=== PATIENT | female | born 1970 | race Hispanic/Latino ===

== ENCOUNTER 2016-06-24 03:51 | Emergency (ER) | payer OTHER ==
[~2016-06-24] VITALS: Ht 167.6 cm; Wt 65.8 kg
[~2016-06-24 03:51] MED LIST: BACTRIM DS 8001 TAB PO; BENTYL20 MG PO; KEFLEX500 MG PO; LO LOESTRIN FE1 TAB PO; MOTRIN800 MG PO; PRILOSEC40 MG PO; XANAX0.5 MG PO; ZOFRAN ODT4 MG PO
--- NOTE | 2016-06-24 04:08 | ED GI/GU/ABDOMINAL COMPLAINT ---
History of Present Illness General Chief Complaint: Syncope and Near-Syncope Stated Complaint: SYNCOPE AND DIARRHEA Source: patient, family, old records Exam Limitations: no limitations Vital Signs & Intake/Output Vital Signs & Intake/Output Vital Signs Date Time Temp Pulse Resp B/P Pulse O2 O2 Flow FiO2 Ox Delivery Rate 06/24 0405 Room Air 06/24 0402 96.9 70 18 101/59 97 Room Air Allergies Coded Allergies: NO KNOWN ALLERGIES (04/09/15) Reconcile Medications Alprazolam (Xanax) 0.5 MG TAB 1 TAB PO BID PRN ANXIETY Dicyclomine Hydrochloride (Bentyl) 20 MG TAB 1 TAB PO TID PRN ABDOMINAL SPASMS NORETHINDRONE-E.ESTRADIOL-IRON (Lo Loestrin Fe 1-10 Tablet) 1 TAB TAB 1 TAB PO DAILY CONTROL (Reported) Omeprazole (Prilosec) 40 MG ECC 1 TAB PO DAILY ACID REFLUX Ondansetron (Zofran Odt) 4 MG ODT 1 TAB PO Q6P PRN NAUSEA Triage Note: PT TO TRIAGE S/P WAKING UP OUT OF SLEEP FEELING NAUSEOUS, WENT INTO THE BATHROOM AND HAD AN EPISODE OF DIARRHEA AND A ?SYNCOPAL EPISODE. PT PALE IN COLOR, ALERT AND ORIENTED UPON ARRIVAL TO ER. Triage Nurses Notes Reviewed? yes ? N Is pt currently ? No HPI: Patient woke up with Abdominal pain associated with her bowels. Patient is also very nauseous. Patient went to the bathroom and in the beginning having diarrhea. Patient then became very lightheaded and anxious, pass out. Patient called her . came in just in time to witness or have syncopal episode lasting approximately 20 seconds. Patient did not fall off the toilet. Patient continues to feel nauseous but denies any further abdominal cramps or pain. Past History Travel History Traveled to [place] past 21 day No Medical History Any Pertinent Medical History? 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 No Review of Systems Review of Systems Constitutional: Reports: see HPI, chills. EENTM: Reports: no symptoms. Respiratory: Reports: no symptoms. Cardiovascular: Reports: no symptoms. GI: Reports: see HPI, abdominal pain, diarrhea, nausea. Genitourinary: Reports: no symptoms. Musculoskeletal: Reports: no symptoms. Skin: Reports: no symptoms. Neurological/Psychological: Reports: no symptoms. Hematologic/Endocrine: Reports: no symptoms. Immunologic/Allergic: Reports: no symptoms. All Other Systems: Reviewed and Negative Physical Exam Physical Exam General Appearance: well developed/nourished, alert, awake, anxious, moderate distress Head: atraumatic, normal appearance Eyes: Bilateral: PERRL, EOMI. Ears, Nose, Throat, Mouth: hearing grossly normal, DRY MUCUS MEMBRANES Neck: normal inspection, supple, full range of motion Respiratory: normal breath sounds, chest non-tender, no respiratory distress, lungs clear Cardiovascular: regular rate/rhythm, normal peripheral pulses Gastrointestinal: normal bowel sounds, soft, non-tender, no organomegaly Back: normal inspection, normal range of motion, NO CVA TENDERNESS Extremities: normal range of motion Neurologic/Psych: no motor/sensory deficits, awake, alert, oriented x 3, normal gait, normal mood/affect Skin: intact, normal color, warm/dry Core Measures ACS in differential dx? No Severe Sepsis Present: No Septic Shock Present: No Progress Differential Diagnosis: biliary colic, colon cancer, diverticulitis, ischemic bowel, inflamm bowel dis, pancreatitis Plan of Care: Orders Procedure Date/time Status Telemetry/Impregnating Tank Operator 06/24 406 Active TROPONIN LEVEL 06/24 406 Complete HUMAN BETA HCG SCREEN 06/24 406 Complete COMPREHENSIVE METABOLIC PANEL 06/24 406 Complete CBC WITHOUT DIFFERENTIAL 06/24 406 Complete EKG 06/24 406 Active Laboratory Tests 06/24/16 0416: Anion Gap 6, Estimated GFR > 60, BUN/Creatinine Ratio 23.3, Glucose 103 H, Calcium 9.1, Total Bilirubin 0.6, AST 19, ALT 21, Alkaline Phosphatase 49, Troponin I < 0.01, Total Protein 6.3, Albumin 3.5, Globulin 2.8, Albumin/ Globulin Ratio 1.3, Total Beta HCG NEGATIVE, CBC w Diff NO MAN DIFF REQ, RBC 4.71, MCV 87.2, MCH 29.1, RDW 13.4, MPV 9.2, Gran % 76.8 H, Lymphocytes % 17.2 L, Monocytes % 4.8, Eosinophils % 0.9, Basophils % 0.3, Absolute Granulocytes 9.7 H, Absolute Lymphocytes 2.2, Absolute Monocytes 0.6, Absolute Eosinophils 0.1, Absolute Basophils 0, PUBS MCHC 33.4 Initial ED EKG: NSR, no ST T wave changes Repeat EKG: unchanged Rhythm Strip: normal sinus rhythm Comments: Patient is feeling much better after IV fluids. Departure Departure Disposition: HOME OR SELF CARE Condition: Stable Clinical Impression Primary Impression: Diarrhea Secondary Impressions: Syncope Referrals: RAJ YAN,DIVYA (PCP/Family) Additional Instructions: RETURN IF SYMPTOMS WORSEN OR FOR ANY CONCNERS Departure Forms: Customer Survey General Discharge Information
[2016-06-24 04:29] LABS: ABSOLUTE BASOPHIL COUNT 0 /CUMM (0.0-0.2); ABSOLUTE EOSINOPHIL COUNT 0.1 /CUMM (0.0-0.7); ABSOLUTE GRANULOCYTE CT 9.7 /CUMM (1.4-6.5); ABSOLUTE LYMPH COUNT 2.2 /CUMM (1.2-3.4); ABSOLUTE MONOCYTE COUNT 0.6 /CUMM (0.10-0.60); BASOPHIL % 0.3 % (0.0-2.0); EOSINOPHIL % 0.9 % (0-5); GRANULOCYTE % 76.8 % (42.2-75.2); HEMATOCRIT 41.1 % (37-47); MEAN CORPUSCULAR HGB 29.1 PG (27.0-31.0); MEAN CORPUSCULAR HGB CONC 33.4 G/DL (33.0-37.0); MEAN CORPUSCULAR VOLUME 87.2 FL (81.0-99.0); MEAN PLATELET VOLUME 9.2 FL (7.4-10.4); PLATELET COUNT 212 /CUMM (130-400); RBC DISTRIBUTION WIDTH 13.4 % (11.5-14.5); RED BLOOD CELL CT 4.71 /CUMM (4.20-5.40); WHITE BLOOD CELL COUNT 12.6 /CUMM (4.8-10.8)
[2016-06-24 05:13] VITALS: BP 112/63
== END 2016-06-24 05:14 ==
LOC: ERH 03:51
PROVIDERS: Emergency Medicine
DX: R55 Syncope and collapse (principal); R19.7 Diarrhea, unspecified
CPT/HCPCS: 93005; 93010; 96361; 96374; J2405